=== PATIENT | male | born 1960 | race Caucasian/White ===

== ENCOUNTER 2021-06-06 15:45 | Inpatient (IN) ==
[2021-06-06] MEDS ORDERED: CATAPRES PO ONE (15:51)
[2021-06-06] MEDS ORDERED: SOLU-MEDROL 125 MG IVP STA (15:51)
[2021-06-06] MEDS ORDERED: VENTOLIN HFA (PER PUFF-WITH SPACER) IH ONE (15:51)
[2021-06-06 15:56] LABS: ABG O2 HGB 84.9 % (95-100); BEecf 10.5 (-2.0-3.0); COHb 1.7 (0.5-1.5); HCO3 35.3 (21-28); MetHb 1.1 (0-1.5); sO2 84.2 % (94-98); tHb 14.7 g/dl (11.7-17.4)
--- NOTE | 2021-06-06 15:56 | ED.PDOC ---
General ED Provider: Dr. JEFERSON KENNY MD Chief Complaint: Shortness of Air Stated Complaint: mild to mod short of breath and off and on dry cough for 2 days, [id number] 67%, no covid vaccine, not on home oxygen, no hx [place], no fever Time Seen by Provider: 06/06/21 15:48 Mode of Arrival: Walk-In Information Source: Patient Nursing and Triage Documentation Reviewed and Agree: Yes Does patient meet sepsis criteria?: No System Inflammatory Response Syndrome: Not Applicable Sepsis Protocol: For patient's 13 years and over: Temp is 96.8 and below OR 101 and greater Pulse >90 BPM Resp >20/minute Acutely Altered Mental Status Are patient's symptoms suggestive of a new infection, such as: -Pneumonia -Skin, Soft Tissue -Endocarditis -UTI -Bone, Joint Infection -Implantable Device -Acute Abdominal Infection -Wound Infection -Meningitis -Blood Stream Catheter Infection -Unknown Review of Systems Review Of Systems Constitutional: Denies Fever Eyes: Denies Vision change Ears, Nose, Mouth, Throat: Denies Throat pain Respiratory: Reports Cough, Short of air and Wheezing; Denies Stridor Cardiac: Denies Chest pain GI: Denies Abdominal pain : Denies Dysuria Musculoskeletal: Denies Back pain Skin: Denies Rash Neurological: Denies Cognitive dysfunction All Other Systems: Other PFSH Family History BROTHER Cancer FATHER Cancer Social History (Updated 11/09/19 @ 13:48 by VIANNEY PAVON LPN) Smoking and tobacco status: Former smoker Alcohol intake: current Substance use type: does not use Tamie/jain: NONE Special tamie needs: No Agree to transfusion: Yes Adopted: No Caregiver/support person: No Foster care: No Household members: spouse Housing: house Marital status: M Lives independently: Yes Daycare: no daycare Number of children: 4 Number of grandchildren: 3 Highest education level completed: 10th grade Financial difficulty paying for basics: not very hard service: No senior living: No Current occupational status: employed Current occupation: acute care assistant of [employer] Pets and animals: Yes Leisure activites: other History of recent travel: No Sexually active: Yes Do you think of yourself as: straight/heterosexual Current gender identity: male Seatbelt use: always Helmet use: No Drives intoxicated or rides with intoxicated wheelchair van driver: No Water heater temperature set < 120 degrees: Yes Working smoke detector in home: Yes Fire extinguisher in home: Yes Carbon monoxide detector in home: No Firearms in home: Yes Firearms unloaded and locked: Yes Physical Exam Physical Exam Appearance: Reports No pain distress Ill-appearing: Mild Pain Distress: None Eyes: Reports Conjunctiva clear ENT: Denies Rhinorrhea Neck: Supple Respiratory: Reports Airway patent, Breath sounds equal and Wheezes Cardiovascular: Reports RRR GI/: Reports Soft and Nontender Musculoskeletal: Reports ROM intact and No edema Skin: Reports Warm and Dry Neurological: Reports Alert and Oriented Psychiatric: Reports Affect appropriate Interpretation Radiology Interpretation Radiology Interpretation By: Radiologist Exam Interpreted: CXR Xray Comments: bilateral pneumonia Radiology Interpretation By: Radiologist Exam Interpreted: CT Scan Xray Comments: no PE EKG Interpretation Time of EKG #1: 18:02 Rate: Tachy Rhythm: Sinus Interpretation: no stemi Critical Care Note Critical Care Note Total Critical Care Time (mins): 0 Course Course Hematology/Chemistry: 06/06/21 16:07 06/06/21 16:07 Orders, Labs, Meds: Lab Review 06/06/21 06/06/21 06/06/21 15:53 16:07 16:07 WBC 10.47 H RBC 4.52 L Hgb 14.4 Hct 44.8 MCV 99.1 H MCH 31.9 H MCHC 32.1 RDW Coeff of Anna 12.2 Plt Count 251 Immature Gran % (Auto) 0.6 Neut % (Auto) 72.0 Lymph % (Auto) 11.4 [place] % (Auto) 15.4 H Eos % (Auto) 0.0 Baso % (Auto) 0.6 Neut # (Auto) 7.6 H Lymph # (Auto) 1.2 [place] # (Auto) 1.6 Eos # (Auto) 0.0 Baso # (Auto) 0.1 Immature Gran # (Auto) 0.1 Puncture Site R rad Base Excess 10.5 H O2 Saturation 84.2 L ABG pH 7.40 ABG pCO2 57.0 H ABG pO2 49.0 L* ABG HCO3 35.3 H ABG Total CO2 37.0 H Andrea Test Y Hemoglobin 1.1 Oxyhemoglobin 84.9 L Carboxyhemoglobin 1.7 H Total Hemoglobin 14.7 FiO2 % 21.0 Sodium 135.7 Potassium 4.45 Chloride 94.9 L Carbon Dioxide 37.6 H Anion Gap 7.65 BUN 18.6 Creatinine 1.00 Estimated GFR (MDRD) 76.00 BUN/Creatinine Ratio 18.60 Glucose 136.7 H Lactic Acid Calcium 8.84 Total Bilirubin 0.64 AST 39.1 ALT 34.0 Alkaline Phosphatase 75.2 Troponin I 0.015 Total Protein 7.65 Albumin 4.02 Globulin 3.63 Albumin/Globulin Ratio 1.10 D-Dimer Adenovirus (PCR) B. pertussis DNA (PCR) B.parapertussis DNA PCR C. pneumoniae DNA (PCR) Coronavirus OC43 (PCR) Coronavirus HKU1 (PCR) Coronavirus 229E (PCR) Coronavirus NL63 (PCR) Human Metapneumovir PCR Influenza Type A (PCR) Influenza B (RT-PCR) M. pneumoniae (PCR) Parainfluenza 1 (PCR) Parainfluenza 2 (PCR) Parainfluenza 3 (PCR) Parainfluenza 4 (PCR) RSV (PCR) Entero/Rhino (PCR) SARS-CoV-2 (PCR) 06/06/21 06/06/21 06/06/21 16:07 16:07 Unknown WBC RBC Hgb Hct MCV MCH MCHC RDW Coeff of Anna Plt Count Immature Gran % (Auto) Neut % (Auto) Lymph % (Auto) [place] % (Auto) Eos % (Auto) Baso % (Auto) Neut # (Auto) Lymph # (Auto) [place] # (Auto) Eos # (Auto) Baso # (Auto) Immature Gran # (Auto) Puncture Site Base Excess O2 Saturation ABG pH ABG pCO2 ABG pO2 ABG HCO3 ABG Total CO2 Andrea Test Hemoglobin Oxyhemoglobin Carboxyhemoglobin Total Hemoglobin FiO2 % Sodium Potassium Chloride Carbon Dioxide Anion Gap BUN Creatinine Estimated GFR (MDRD) BUN/Creatinine Ratio Glucose Lactic Acid 1.43 Calcium Total Bilirubin AST ALT Alkaline Phosphatase Troponin I Total Protein Albumin Globulin Albumin/Globulin Ratio D-Dimer 878.14 H Adenovirus (PCR) Not detected B. pertussis DNA (PCR) Not detected B.parapertussis DNA PCR Not detected C. pneumoniae DNA (PCR) Not detected Coronavirus OC43 (PCR) Not detected Coronavirus HKU1 (PCR) Not detected Coronavirus 229E (PCR) Not detected Coronavirus NL63 (PCR) Not detected Human Metapneumovir PCR Not detected Influenza Type A (PCR) Not detected Influenza B (RT-PCR) Not detected M. pneumoniae (PCR) Not detected Parainfluenza 1 (PCR) Not detected Parainfluenza 2 (PCR) Not detected Parainfluenza 3 (PCR) Not detected Parainfluenza 4 (PCR) Not detected RSV (PCR) Not detected Entero/Rhino (PCR) Not detected SARS-CoV-2 (PCR) Not detected Orders Category Date Time Status ABG DRAW REQUEST Stat CARDIO 06/06/21 15:46 Completed EKG-(ED ONLY) Stat CARDIO 06/06/21 15:51 Completed METERED DOSE INHALATION Routine CARDIO 06/06/21 15:53 Completed NPO REMINDER: IMAGING ONCE CARE 06/06/21 16:59 Active OXYGEN [ED APPLY O2] .ONCE EMERGENCY 06/06/21 15:51 Active ABG COOX Stat LAB 06/06/21 15:53 Completed BLOOD CULTURE Stat LAB 06/06/21 17:40 Received CBC W/ AUTO DIFF Stat LAB 06/06/21 16:07 Completed CMP [COMPREHENSIVE METABOLIC PANEL] Stat LAB 06/06/21 16:07 Completed D-DIMER Stat LAB 06/06/21 16:07 Completed LACTIC ACID Stat LAB 06/06/21 16:07 Completed RESPIRATORY PANEL 2.1 (PCR) Stat LAB 06/06/21 Completed TROPONIN I Stat LAB 06/06/21 16:07 Completed Albuterol Inhaler(with Spacer) [Ventolin Hfa (Per Puff- MEDS 06/06/21 15:51 Discontinued with Spacer)] 2 puff IH ONCE ONE Clonidine HCl [Catapres] MEDS 06/06/21 15:51 Discontinued 0.1 mg PO ONCE ONE Methylprednisolone Sod Succ/Pf [Solu-Medrol 125 mg] MEDS 06/06/21 15:51 Discontinued 125 mg IVP ONCE STA Piperacillin Sodium/Tazobactam [Zosyn 3.375 gm] 3.375 MEDS 06/06/21 17:13 Active gm 0.9 % Sodium Chloride [Sodium Chloride] 50 ml IV ONCE CHEST, 1V AP ONLY Stat RADS 06/06/21 15:[address] CHEST PE PROTOCOL Stat RADS 06/06/21 16:59 Completed Medications Generic Name Dose Route Start Last Admin Trade Name Freq PRN Reason Stop Dose Admin Piperacillin Sod/Tazobactam 50 mls @ 50 mls/hr 06/06/21 17:13 Sod 3.375 gm/ Sodium Chloride IV 06/06/21 18:12 ONCE ONE Discontinued Medications Generic Name Dose Route Start Last Admin Trade Name Gerald PRN Reason Stop Dose Admin Albuterol Sulfate 2 puff 06/06/21 15:51 06/06/21 16:15 Albuterol Sulfate (Ventolin Hfa) 18 Gm 1 Puff With Spacer IH 06/06/21 15:52 2 puff ONCE ONE Administration Clonidine 0.1 mg 06/06/21 15:51 06/06/21 16:20 Clonidine Hcl 0.1 Mg Tablet PO 06/06/21 15:52 0.1 mg ONCE ONE Administration Methylprednisolone Sodium Succinate 125 mg 06/06/21 15:51 06/06/21 16:20 Methylprednisolone Sod Succ/Pf 125 Mg/2 Ml Vial IVP 06/06/21 15:52 125 mg ONCE STA Administration Vital Signs: Temp Pulse Resp BP Pulse Ox 06/06/21 15:46 98.9 F 101 H 26 H 185/101 H 67 L Discharge Plan Discharge Patient Disposition: AMA Discharge Problem: Pneumonia, Hypoxia Instructions: Bacterial Pneumonia (DC) Prescriptions: New levofloxacin 750 mg tablet 750 mg PO DAILY PRN (Reason: x) Qty: 7 0RF methylprednisolone [Medrol (Jacobo)] 4 mg tablets,dose pack See Rx Instructions .ROUTE .COMPLEX PRN (Reason: x) Qty: 21 0RF Rx Instructions: orally per package directions PRN; albuterol sulfate 90 mcg/actuation HFA aerosol inhaler 2 puff inhalation Q6H PRN (Reason: shortness of breath or wheezing) Qty: 6.7 0RF clonidine HCl 0.1 mg tablet 0.1 mg PO BID Qty: 14 0RF Activity Restrictions/Additional Instructions: return tomorrow for case management evaluation for home oxygen Condition: Stable Physician Progress Note: pt improved, alert and oriented x 3, demands to leave ama, pt refusing admission or transfer, pt aware he could suddenly or become permanently disabled, pt aware he may return at anytime, scripts for levaquin, albuterol inhaler, medrol dose pk, catapres rendered, return tomorrow so case management can set up home oxygen therapy []
[2021-06-06 16:13] LABS: BASOPHILS # (AUTO) 0.1 K/uL (0-0.2); BASOPHILS % (AUTO) 0.6 % (0.0-3.0); HEMATOCRIT 44.8 % (42.0-52.0); HEMOGLOBIN 14.4 g/dl (14.0-18.0); IMMATURE GRANULOCYTE # (AUTO) 0.1 (0.0-1.0); IMMATURE GRANULOCYTE % (AUTO) 0.6 % (0.0-5.0); LYMPHOCYTES # (AUTO) 1.2 K/uL (0.60-3.4); LYMPHOCYTES % (AUTO) 11.4 (10.0-50.0); MEAN CORPUSCULAR HEMOGLOBIN 31.9 pg (27.0-31.0); MEAN CORPUSCULAR HGB CONC 32.1 (31.8-35.4); MEAN CORPUSCULAR VOLUME 99.1 fl (80.0-94.0); MONOCYTES # (AUTO) 1.6 K/uL (0.4-2.0); MONOCYTES % (AUTO) 15.4 (0-10); NEUTROPHILS # (AUTO) 7.6 K/ul (2.0-6.9); PLATELET COUNT 251 10^3/uL (140-440); RDW COEFFICIENT OF VARIATION 12.2 % (11.6-14.8); RED BLOOD COUNT 4.52 10^6/ul (4.70-6.10); WHITE BLOOD COUNT 10.47 K/ul (4.2-10.2)
[2021-06-06 16:27] LABS: ALBUMIN 4.02 g/dL (3.5-5.0); ALKALINE PHOSPHATASE 75.2 U/L (56-119); ASPARTATE AMINO TRANSFERASE 39.1 U/L (17-59); BILIRUBIN,TOTAL 0.64 mg/dL (0.2-1.3); BLOOD UREA NITROGEN 18.6 mg/dL (9-20); CALCIUM 8.84 mg/dL (8.4-10.2); CARBON DIOXIDE 37.6 mmol/L (22-30.0); CHLORIDE 94.9 mmol/L (98-107); GLUCOSE 136.7 mg/dL (74-106); POTASSIUM 4.45 mmol/L (3.5-5.1); SODIUM 135.7 mmol/L (134.5-145); TOTAL PROTEIN 7.65 g/dL (6.3-8.2)
--- NOTE | 2021-06-06 16:30 | DI ---
EXAM: Chest one view, frontal view only. HISTORY: Cough, shortness of breath. COMPARISON: None. FINDINGS: Heart size normal. Peribronchial thickening with reticulonodular opacities throughout bot h lungs. No pleural effusion or pneumothorax. No acute osseous abnormality. IMPRESSION: Suspect bilateral pneumonia.
[2021-06-06 16:39] LABS: TROPONIN I 0.015 ng/ml (0.0000-0.120)
[2021-06-06 17:00] LABS: ADENOVIRUS (PCR) NOT DETECTED (NOT DETECT); BORDETELLA PARAPERTUSSIS (PCR) NOT DETECTED (NOT DETECT); BORDETELLA PERTUSSIS (PCR) NOT DETECTED (NOT DETECT); CHLAMYDIA PNEUMONIAE (PCR) NOT DETECTED (NOT DETECT); CORONAVIRUS 229E (PCR) NOT DETECTED (NOT DETECT); CORONAVIRUS HKU1 (PCR) NOT DETECTED (NOT DETECT); CORONAVIRUS NL63 (PCR) NOT DETECTED (NOT DETECT); CORONAVIRUS OC43 (PCR) NOT DETECTED (NOT DETECT); HUMAN METAPNEUMOVIRUS (PCR) NOT DETECTED (NOT DETECT); HUMAN RHINOVIRUS/ENTEROV (PCR) NOT DETECTED (NOT DETECT); INFLUENZA B (PCR) NOT DETECTED (NOT DETECT); MYCOPLASMA PNEUMONIAE (PCR) NOT DETECTED (NOT DETECT); PARAINFLUENZA VIRUS 1 (PCR) NOT DETECTED (NOT DETECT); PARAINFLUENZA VIRUS 2 (PCR) NOT DETECTED (NOT DETECT); PARAINFLUENZA VIRUS 3 (PCR) NOT DETECTED (NOT DETECT); PARAINFLUENZA VIRUS 4 (PCR) NOT DETECTED (NOT DETECT); RESPIRATORY SYNCYTIAL V (PCR) NOT DETECTED (NOT DETECT); SARS_COV_2 (PCR) NOT DETECTED (NOT DETECT)
[2021-06-06] MEDS ORDERED: ZOSYN 3.375 GM 3.375 GM in SODIUM CHLORIDE 50 ML IV ONE (17:13)
--- NOTE | 2021-06-06 17:53 | CT ---
Exam: CT angiography of the chest History: Elevated D-dimer Technique: [address] of the chest utilizing CT angiography protocol. Multiplanar and max imum intensity projection reformations were performed. FINDINGS: Technically adequate for evaluation of pulmonary arteries and aorta. There are no pulmonar y artery filling defects. Lung windows show bilateral diffuse tree-in-bud nodular infiltrates. No c onsolidative change. No ground-glass opacities. Atherosclerotic calcification of the aorta without aneurysm or dissection. No pathologic lymph node enlargement mediastinum. Mediastinal lymph node ab undance. Bronchial wall thickening bilaterally. No acute chest wall abnormality. No acute findings of the upper abdomen. Impression: 1. No evidence of pulmonary artery thrombus 2. Diffuse bilateral tree-in-bud nodular infiltrates, nonspecific. Correlate for infective bronchio litis. All CT scans are performed using dose optimization techniques as appropriate to the performed exam an d include at least one of the following: Automated exposure control, adjustment of the mA and/or kV according t o size, and the use of iterative reconstruction technique.
--- NOTE | 2021-06-06 18:48 | PCM.PROG ---
Subjective: pneumonia and hypoxia admit Objective: Vitals: T=98.9 F, P=101, R=26, PF=092/101, SPO2=67 HEENT: [] Neck: [] Lungs: [] CVS: [] Abdomen: [] Extremities: [] Neurological: [] Skin: [] Lab/Tests/Diagnostic Imaging: [] Plan: care to Dr Paul at 19:00
[2021-06-06 21:46] VITALS: BMI 32.9
[2021-06-07] MEDS ORDERED: HUMULIN R SUBCUT PRN (00:18)
[2021-06-07] MEDS: ALBUTEROL 0.042% NEB NEB SCH ×4 (04:30→23:08)
[2021-06-07 05:18] LABS: BASOPHILS % (AUTO) 0.5 % (0.0-3.0); HEMATOCRIT 47.4 % (42.0-52.0); HEMOGLOBIN 14.7 g/dl (14.0-18.0); IMMATURE GRANULOCYTE % (AUTO) 0.5 % (0.0-5.0); LYMPHOCYTES # (AUTO) 0.8 K/uL (0.60-3.4); LYMPHOCYTES % (AUTO) 11.8 (10.0-50.0); MEAN CORPUSCULAR HEMOGLOBIN 31.4 pg (27.0-31.0); MEAN CORPUSCULAR VOLUME 101.3 fl (80.0-94.0); MONOCYTES # (AUTO) 0.5 K/uL (0.4-2.0); MONOCYTES % (AUTO) 7.5 (0-10); NEUTROPHILS # (AUTO) 5.2 K/ul (2.0-6.9); NEUTROPHILS % (AUTO) 79.7 % (42.2-75.2); PLATELET COUNT 259 10^3/uL (140-440); RDW COEFFICIENT OF VARIATION 12.3 % (11.6-14.8); RED BLOOD COUNT 4.68 10^6/ul (4.70-6.10); WHITE BLOOD COUNT 6.54 K/ul (4.2-10.2)
[2021-06-07 05:30] LABS: ALANINE AMINOTRANSFERASE 36.7 U/L (0-50); ALBUMIN 4.06 g/dL (3.5-5.0); ALKALINE PHOSPHATASE 77.3 U/L (56-119); ASPARTATE AMINO TRANSFERASE 23.9 U/L (17-59); BILIRUBIN,TOTAL 0.39 mg/dL (0.2-1.3); BLOOD UREA NITROGEN 19.5 mg/dL (9-20); CALCIUM 8.89 mg/dL (8.4-10.2); CREATININE 1.14 mg/dL (0.60-1.10); GLUCOSE 149.8 mg/dL (74-106); POTASSIUM 5.25 mmol/L (3.5-5.1); SODIUM 139.4 mmol/L (134.5-145); TOTAL PROTEIN 7.95 g/dL (6.3-8.2)
[2021-06-07 05:37] LABS: CARBON DIOXIDE 36.3 mmol/L (22-30.0)
[2021-06-07] MEDS: SOLU-MEDROL 40 MG IVP SCH ×2 (09:10→21:38)
[2021-06-07] MEDS: LOVENOX SUBCUT SCH (09:10)
[2021-06-07] MEDS: DOXY-100 100 MG in SODIUM CHLORIDE 100ML 100 ML IV SCH ×2 (09:10→21:39)
--- NOTE | 2021-06-07 10:49 | PCM.PROG ---
Date Seen by Provider: 06/07/21 Subjective: pt improved on 2liters [place] oxygen, on doxycycline and rocephin for pneumonia, covid test negative, troponin normal range, cta negative for PE Objective: Vitals: T=98.1 F, P=91, R=22, CG=802/77, SPO2=89 HEENT: []eomi Neck: []supple Lungs: [] wheezing CVS: []RRR Abdomen: []nontender Extremities: []rosa Neurological: []awake and alert Skin: []warm and dry Lab/Tests/Diagnostic Imaging: [] (1) Pneumonia: Status: Acute Code(s): J18.9 - Pneumonia, unspecified organism SNOMED Code(s): 130658395 (2) Hypoxia: Status: Acute Code(s): R09.02 - Hypoxemia SNOMED Code(s): 500588694 Plan: continue antibiotics, albuterol hfa, steroids, oxygen care to Dr Archer at 19:00
[2021-06-07] MEDS: ROCEPHIN 1 GM/50 ML D5W 1 GM/50 ML BAG IV SCH (11:11)
[2021-06-08] MEDS: ALBUTEROL 0.042% NEB NEB SCH ×3 (04:10→17:15)
[2021-06-08 05:19] LABS: BASOPHILS % (AUTO) 0.2 % (0.0-3.0); HEMATOCRIT 47.3 % (42.0-52.0); HEMOGLOBIN 14.5 g/dl (14.0-18.0); IMMATURE GRANULOCYTE # (AUTO) 0.1 (0.0-1.0); IMMATURE GRANULOCYTE % (AUTO) 0.7 % (0.0-5.0); LYMPHOCYTES # (AUTO) 1.9 K/uL (0.60-3.4); LYMPHOCYTES % (AUTO) 22.9 (10.0-50.0); MEAN CORPUSCULAR HEMOGLOBIN 31.3 pg (27.0-31.0); MEAN CORPUSCULAR HGB CONC 30.7 (31.8-35.4); MEAN CORPUSCULAR VOLUME 102.2 fl (80.0-94.0); MONOCYTES # (AUTO) 0.9 K/uL (0.4-2.0); MONOCYTES % (AUTO) 10.3 (0-10); NEUTROPHILS # (AUTO) 5.5 K/ul (2.0-6.9); NEUTROPHILS % (AUTO) 65.9 % (42.2-75.2); PLATELET COUNT 266 10^3/uL (140-440); RDW COEFFICIENT OF VARIATION 12.4 % (11.6-14.8); RED BLOOD COUNT 4.63 10^6/ul (4.70-6.10); WHITE BLOOD COUNT 8.33 K/ul (4.2-10.2)
[2021-06-08 05:41] LABS: ALANINE AMINOTRANSFERASE 39.2 U/L (0-50); ALBUMIN 3.69 g/dL (3.5-5.0); ALKALINE PHOSPHATASE 76.3 U/L (56-119); ASPARTATE AMINO TRANSFERASE 33.1 U/L (17-59); BILIRUBIN,TOTAL 0.32 mg/dL (0.2-1.3); BLOOD UREA NITROGEN 24.4 mg/dL (9-20); CALCIUM 9.09 mg/dL (8.4-10.2); CHLORIDE 96.1 mmol/L (98-107); CREATININE 1.02 mg/dL (0.60-1.10); GLUCOSE 99.6 mg/dL (74-106); POTASSIUM 4.49 mmol/L (3.5-5.1); SODIUM 140.3 mmol/L (134.5-145); TOTAL PROTEIN 7.19 g/dL (6.3-8.2)
[2021-06-08 05:47] LABS: CARBON DIOXIDE 39.8 mmol/L (22-30.0)
[2021-06-08] MEDS: LOVENOX SUBCUT SCH (08:42)
[2021-06-08] MEDS: ROCEPHIN 1 GM/50 ML D5W 1 GM/50 ML BAG IV SCH (08:42)
[2021-06-08 08:55] LABS: ABG O2 HGB 90.4 % (95-100); ABG PH 7.39 (7.35-7.45); COHb 1.3 (0.5-1.5); TCO2 45.2 (19-24); sO2 89.9 % (94-98); tHb 14.3 g/dl (11.7-17.4)
[2021-06-08] MEDS: SOLU-MEDROL 40 MG IVP SCH ×2 (10:01→21:10)
[2021-06-08] MEDS: DOXY-100 100 MG in SODIUM CHLORIDE 100ML 100 ML IV SCH ×2 (10:13→21:10)
--- NOTE | 2021-06-08 23:12 | PCM.PROG ---
Date Seen by Provider: 06/08/21 Time Seen by Provider: 12:00 Subjective: Date of admit - 06/06/21 with dx Pneunmonia, non-COVID. Feeling better, ready to go home. Long hx of smoking, says he knows his lungs "are not 100% on a good day". Objective: Vitals: T=98.2 F, P=76, R=18, IZ=275/68, SPO2=96 HEENT: [WNL] Neck: [WNL] Lungs: [Clear, somewhat decreased breath sounds] CVS: [RRR, no m] Abdomen: soft[] Extremities: [intact] Neurological: [intact] Skin: [WNL] Lab/Tests/Diagnostic Imaging: [see chart] (1) Pneumonia: Status: Acute Code(s): J18.9 - Pneumonia, unspecified organism SNOMED Code(s): 632463387 Assessment: Clinically improving on rocephin and doxy. Neb tx, steroids, and oxygen prn. (2) Hypoxia: Status: Acute Code(s): R09.02 - Hypoxemia SNOMED Code(s): 247861037 Assessment: Still requiring oxygen to keep sat's good, nurses and RT are weaning down, I think on 3 L right now. Has likely underlying COPD, slowing the weaning process. Plan: 1. Pneumonia, continue current abx. 2. Hypoxia, try the 3 step test for oxygen requirements.
[2021-06-09] MEDS: ALBUTEROL 0.042% NEB NEB SCH ×2 (00:10→04:15)
[2021-06-09 05:06] VITALS: BP 120/70; TEMP 97.9
[2021-06-09 09:30] LABS: ABG O2 HGB 92.8 % (95-100); ABG PH 7.46 (7.35-7.45); BEecf 18.2 (-2.0-3.0); COHb 1.3 (0.5-1.5); MetHb 0.7 (0-1.5); TCO2 43.8 (19-24); sO2 93.2 % (94-98); tHb 14.3 g/dl (11.7-17.4)
[2021-06-09] MEDS: DOXY-100 100 MG in SODIUM CHLORIDE 100ML 100 ML IV SCH (09:42)
[2021-06-09] MEDS: SOLU-MEDROL 40 MG IVP SCH (09:43)
[2021-06-09] MEDS: LOVENOX SUBCUT SCH (09:43)
[2021-06-09] MEDS: ROCEPHIN 1 GM/50 ML D5W 1 GM/50 ML BAG IV SCH (12:01)
--- NOTE | 2021-06-25 07:53 | PCM.DC ---
Final Diagnosis: Pneumonia Acute hypoxia secondary to acute respiratory insufficiency (1) Pneumonia: Status: Acute Code(s): J18.9 - Pneumonia, unspecified organism SNOMED Code(s): 528272737 (2) Hypoxia: Status: Acute Code(s): R09.02 - Hypoxemia SNOMED Code(s): 747932144 Medications at Discharge: Ambulatory Orders Medication Instructions Recorded albuterol sulfate 90 mcg/actuation 2 puff INHALATION Q6H PRN #1 g 06/09/21 aerosol inhaler (ProAir HFA) doxycycline hyclate 100 mg capsule 100 mg PO BID #14 cap 06/09/21 methylprednisolone 4 mg tablets in See Rx Instructions .ROUTE 06/09/21 a dose pack (Medrol (Jacobo)) .COMPLEX #21 ea Education Provided to Patient and Family: Discharge Plan Discharge Patient Disposition: AMA Discharge Problem: Pneumonia, Hypoxia Instructions: Bacterial Pneumonia (DC) Prescriptions: New levofloxacin 750 mg tablet 750 mg PO DAILY PRN (Reason: x) Qty: 7 0RF methylprednisolone [Medrol (Jacobo)] 4 mg tablets,dose pack See Rx Instructions .ROUTE .COMPLEX PRN (Reason: x) Qty: 21 0RF Rx Instructions: orally per package directions PRN; albuterol sulfate 90 mcg/actuation HFA aerosol inhaler 2 puff inhalation Q6H PRN (Reason: shortness of breath or wheezing) Qty: 6.7 0RF clonidine HCl 0.1 mg tablet 0.1 mg PO BID Qty: 14 0RF Activity Restrictions/Additional Instructions: return tomorrow for case management evaluation for home oxygen Condition: Stable Physician Progress Note: pt improved, alert and oriented x 3, demands to leave ama, pt refusing admission or transfer, pt aware he could suddenly or become permanently disabled, pt aware he may return at anytime, scripts for levaquin, albuterol inhaler, medrol dose pk, catapres rendered, return tomorrow so case management can set up home oxygen therapy
--- NOTE | 2021-06-26 13:49 | DS ---
DATE OF SERVICE: 06/09/21 DISCHARGE DIAGNOSIS: 1.Acute pneumonia, improving 2.Hypoxemia secondary to respiratory insufficiency, improving STATEMENT: This 61 year old male patient was admitted to the hospital through the emergency room with chief complaints of moderate shortness of breath and dry cough for two days. O2 saturation was 67%. He was not on home oxygen and has not had his COVID vaccine. Imaging studies revealed evidence of a bilateral pneumonia. Diagnostic labs studies included a WBC 10.47 at the time of admission with an H&H of 14.4 and 44.8. His blood gasses showed a pH 7.40, pO2 49, pCO2 57. O2 saturation was 84.2%. COVID testing was negative. At the time of admission to the hospital the patient was started on IV fluids as well as IV Methylprednisolone. Hypertension was treated with Clonidine 0.1mg. Piperacillin 3.375grams was administered IV in addition to steroids. His condition gradually improved. It was felt that he could be safely discharged to home. Therefore [facility] is requested for discharge planning. The patient was in preparation for discharge where in fact he signed out AMA. Prescriptions were sent to the pharmacy included Levofloxacin 17gram Q daily, Methylprednisolone dose pack to be taken as directed. Final Diagnosis: Pneumonia Acute hypoxia secondary to acute respiratory insufficiency (1) Pneumonia: Status: Acute Code(s): J18.9 - Pneumonia, unspecified organism SNOMED Code(s): 851381114 (2) Hypoxia: Status: Acute Code(s): R09.02 - Hypoxemia SNOMED Code(s): 611705774 Medications at Discharge: Ambulatory Orders Medication Instructions Recorded albuterol sulfate 90 mcg/actuation 2 puff INHALATION Q6H PRN #1 g 06/09/21 aerosol inhaler (ProAir HFA) doxycycline hyclate 100 mg capsule 100 mg PO BID #14 cap 06/09/21 methylprednisolone 4 mg tablets in See Rx Instructions .ROUTE 06/09/21 a dose pack (Medrol (Jacobo)) .COMPLEX #21 ea MTDD
== END 2021-06-09 13:50 | disposition home or self-care (01) | DRG 195 ==
LOC: ED 15:45 → MEDSURG A 20:22
PROVIDERS: ADMIT Family Medicine; ATTEND Emergency Medicine
DX: R06.02 Shortness of breath; Z20.822 Contact with and (suspected) exposure to COVID-19; R09.02 Hypoxemia; J18.9 Pneumonia, unspecified organism